=== PATIENT | female | born 1990 | race Caucasian/White ===

== ENCOUNTER 2016-10-11 18:14 | Emergency (ER) | payer OTHER ==
[2016-10-11 18:24] VITALS: BP 134/79; PULSE 123; TEMP 101; BMI 31.7
[2016-10-11] MEDS ORDERED: IBUPROFEN 400 MG TABLET (FP) PO ONE (18:53)
--- NOTE | 2016-10-11 19:34 | PDOC ---
History of Present Illness - General Chief Complaint: Sore Throat Stated Complaint: FEVER Time Seen by Provider: 10/11/16 18:51 History Source: Patient Exam Limitations: No Limitations - History of Present Illness Initial Comments: 10/11/16 19:26 25 yr female with c/o fever sore throat since yesterday and low back pain. no vomiting or diarrhea, no sick contacts. Timing/Duration: 24 hours Severity: mild Past History - Past Medical History Allergies/Adverse Reactions: Allergies Allergy/AdvReac Type Severity Reaction Status Date / Time No Known Allergies Allergy Verified 10/17/15 15:57 Home Medications: Ambulatory Orders Amoxicillin - [Amoxicillin 500mg Capsule -] 500 mg PO BID #20 capsule 10/11/16 Ibuprofen 800 mg PO TID PRN #21 tablet 10/11/16 Asthma: No Cancer: No Cardiac Disorders: No CVA: Yes (at 6 months old) Diabetes: No HTN: No Suicide Attempt (Hx): No Seizures: Yes (6 Months- 6 Y.O.A.) Thyroid Disease: No - Reproductive History (#): 3 Para: 1 Cervical CA: No Dysfunctional Uterine Bleeding: No Ectopic : No Endometrial CA: No Polycystic Ovaries: No Therapeutic (s) & number: Yes Tubal Ligation: No - Immunization History Td Vaccination: Yes TDAP Vaccination: Yes Immunization Up to Date: Yes - Psycho/Social/Smoking Cessation Hx Anxiety: No Suicidal Ideation: No Smoking Status: No Smoking History: Never smoked Years of Tobacco Use: 0 Have you smoked in the past 12 months: No Number of Cigarettes Smoked Daily: 1 Cigars Per Day: 0 Hx Alcohol Use: No Drug/Substance Use Hx: No Substance Use Type: None Hx Substance Use Treatment: No Review of Systems - Review of Systems Able to Perform ROS?: Yes Is the patient limited Tongan proficient: No Constitutional: Yes: Symptoms Reported, Fever HEENTM: Yes: Symptoms Reported Respiratory: No: Symptoms reported Cardiac (ROS): No: Symptoms Reported ABD/GI: No: Symptoms Reported *Physical Exam - Vital Signs Last Vital Signs Temp Pulse Resp BP Pulse Ox 101.0 F H 123 H 20 134/79 100 10/11/16 18:21 10/11/16 18:21 10/11/16 18:21 10/11/16 18:21 10/11/16 18:21 - Physical Exam General Appearance: Yes: Nourished, Appropriately Dressed HEENT: positive: EOMI, CORNELIO, TMs Normal, Tonsillar Exudate, Tonsillar Erythema, Other (uvula midline). negative: Muffled/Hoarse voice Neck: positive: Lymphadenopathy (R), Lymphadenopathy (L) Respiratory/Chest: positive: Lungs Clear, Normal Breath Sounds Cardiovascular: positive: Regular Rhythm, Regular Rate, Tachycardia (fever) Gastrointestinal/Abdominal: positive: Normal Bowel Sounds, Soft. negative: Tender Musculoskeletal: positive: Normal Inspection. negative: CVA Tenderness, CVA Tenderness (R), CVA Tenderness (L) Extremity: positive: Normal Capillary Refill, Normal Inspection, Normal Range of Motion Integumentary: positive: Normal Color, Dry, Warm Neurologic: positive: Fully Oriented, Alert, Normal Mood/Affect, Normal Response , Motor Strength 5/5 Medical Decision Making - Medical Decision Making 10/11/16 19:35 cc: sore throat fever no vomiting or diarrhea no abd pain, co low back pain no urinary symptoms no sick contacts will check rapid strep 10/11/16 19:36 pt is able to tolerate po water dc inst given to pt all questions asked and answered at discharge pt aware to return if worse 10/11/16 19:42 10/11/16 19:45 *DC/Admit/Observation/Transfer Diagnosis at time of Disposition: Strep pharyngitis - Discharge Dispostion Disposition: HOME Condition at time of disposition: Good - Prescriptions Prescriptions: Amoxicillin - [Amoxicillin 500mg Capsule -] 500 mg PO BID #20 capsule Ibuprofen 800 mg PO TID PRN #21 tablet PRN Reason: Moderate Pain - Referrals Referrals: France Eckert MD [Primary Care Provider] - - Patient Instructions Additional Instructions: gargle with warm salt water 4-5 times a day take motirn 800mg every 6hrs for fever as needed ice pops, jello, juice, water, drink pleanty of fluids take the Amoxicillin as directed for 10 days follow with ENT if any worsening symptoms
[2016-10-11] MEDS ORDERED: AMOXICILLIN 500 MG CAPSULE (FP) PO ONE (19:37)
[2016-10-11] MEDS ORDERED: ACETAMINOPHEN 500 MG TABLET (FP) PO ONE (19:41)
[2016-10-11] MEDS ORDERED: AMOXICILLIN 250 MG CAPSULE ONE (19:43)
[2016-10-11] MEDS ORDERED: ACETAMINOPHEN 500 MG TABLET (FP) ONE (19:43)
[2016-10-11 19:47] LABS: URINE APPEARANCE SLCLOUDY; URINE BILIRUBIN NEGATIVE (NEGATIVE); URINE BLOOD 2+ (NEGATIVE); URINE COLOR AMBER; URINE GLUCOSE (UA) NEGATIVE (NEGATIVE); URINE KETONE NEGATIVE (NEGATIVE); URINE LEUK ESTERASE NEGATIVE (NEGATIVE); URINE NITRITE NEGATIVE (NEGATIVE); URINE PROTEIN NEGATIVE (NEGATIVE); URINE UROBILINOGEN 4.0 E.U/dl mg/dL (0.2-1.0)
[2016-10-11 19:50] LABS: URINE HYALINE CAST 1 /lpf; URINE MUCUS RARE; URINE RBC 16 /hpf (0-3); URINE WBC 3 /hpf (3-5)
== END 2016-10-11 19:48 | disposition home or self-care (01) ==
LOC: JERFT 18:14
DX: J02.0 Streptococcal pharyngitis (principal); B95.4 Other streptococcus as the cause of diseases classified elsewhere; Z86.69 Personal history of other diseases of the nervous system and sense organs; Z86.73 Personal history of transient ischemic attack (TIA), and cerebral infarction without residual deficits
CPT/HCPCS: 81003; 81015; 84703; 87070; 87430; 99281-25

== ENCOUNTER 2018-06-04 11:00 | Emergency (ER) | payer OTHER ==
[2018-06-04 11:05] VITALS: BP 123/86; PULSE 86; TEMP 98.2; BMI 31.4
--- NOTE | 2018-06-04 13:30 | PDOC ---
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) COPD: No Diabetes: No HTN: No Seizures: Yes (6 Months- 6 Y.O.A.) Thyroid Disease: No - Surgical History Cholecystectomy: (gall stones) - Reproductive History (#): 3 Para: 1 Cervical CA: No Dysfunctional Uterine Bleeding: No Ectopic : No Endometrial CA: No Polycystic Ovaries: No Therapeutic (s) & number: Yes Tubal Ligation: No - Immunization History Td Vaccination: Yes TDAP Vaccination: Yes Immunization Up to Date: Yes - Suicide/Smoking/Psychosocial Hx Smoking Status: No Smoking History: Never smoked Years of Tobacco Use: 0 Have you smoked in the past 12 months: No Number of Cigarettes Smoked Daily: 1 Cigars Per Day: 0 Hx Alcohol Use: No Drug/Substance Use Hx: No Substance Use Type: None Hx Substance Use Treatment: No <Mack Scott - Last Filed: 06/04/18 16:13> <Cherelle Barnett - Last Filed: 06/04/18 18:46> - Past Medical History Allergies/Adverse Reactions: Allergies Allergy/AdvReac Type Severity Reaction Status Date / Time No Known Allergies Allergy Verified 06/04/18 11:04 Home Medications: Ambulatory Orders NK [No Known Home Medication] 06/04/18 Review of Systems - Review of Systems Constitutional: No: Chills, Fever ABD/GI: No: Blood Streaked Bowels, Constipated, Diarrhea, Nausea, Rectal Bleeding, Vomiting : Yes: Flank Pain. No: Dysuria, Discharge, Frequency, Hematuria <Mack Scott Last Filed: 06/04/18 16:13> *Physical Exam - Vital Signs Last Vital Signs Temp Pulse Resp BP Pulse Ox 98.2 F 86 18 123/86 99 06/04/18 11:01 06/04/18 11:01 06/04/18 11:01 06/04/18 11:01 06/04/18 11:01 - Physical Exam General Appearance: Yes: Appropriately Dressed. No: Apparent Distress HEENT: positive: Normal Voice Neck: positive: Supple Respiratory/Chest: negative: Respiratory Distress Gastrointestinal/Abdominal: positive: Normal Bowel Sounds, Tender (poorly localized ttp to R side of abd, neg murpehys, NT over mcburneys), Soft. negative: Distended, Guarding, Rebound Musculoskeletal: negative: CVA Tenderness Integumentary: positive: Dry, Warm Neurologic: positive: Fully Oriented, Alert, Normal Mood/Affect <Mack Scott - Last Filed: 06/04/18 16:13> - Vital Signs Last Vital Signs Temp Pulse Resp BP Pulse Ox 98.2 F 86 18 123/86 99 06/04/18 11:01 06/04/18 11:01 06/04/18 11:01 06/04/18 11:01 06/04/18 11:01 <Cherelle Barnett - Last Filed: 06/04/18 18:46> ED Treatment Course - LABORATORY CBC & Chemistry Diagram: 06/04/18 13:26 06/04/18 13:19 <Mack Scott - Last Filed: 06/04/18 16:13> - LABORATORY CBC & Chemistry Diagram: 06/04/18 13:26 06/04/18 13:19 - ADDITIONAL ORDERS Additional order review: Laboratory Results 06/04/18 06/04/18 06/04/18 15:10 13:21 13:19 Sodium 139 Potassium 4.1 Chloride 108 H Carbon Dioxide 26 Anion Gap 6 L BUN 12 Creatinine 0.6 Creat Clearance w eGFR 118.19 Random Glucose 79 Calcium 9.4 Total Bilirubin 0.4 AST 10 L ALT 16 Alkaline Phosphatase 84 Total Protein 7.7 Albumin 3.9 Serum , Qual Negative Urine Color Yellow Urine Appearance Clear Urine pH 6.5 Ur Specific [place] 1.025 Urine Protein Negative Urine Glucose (UA) Negative Urine Ketones Negative Urine Blood 3+ H Urine Nitrite Negative Urine Bilirubin Negative Urine Urobilinogen 0.2 Ur Leukocyte Esterase 1+ H Urine WBC (Auto) 2-5 Urine RBC (Auto) 20-50 Urine Casts (Auto) 0 U Epithel Cells (Auto) 2-5 Urine Bacteria (Auto) Few Urine HCG, Qual Negative 06/04/18 13:26 RBC 4.52 MCV 86.2 MCHC 34.6 RDW 13.0 D MPV 7.7 Neutrophils % 75.2 Lymphocytes % 19.2 Monocytes % 4.5 Eosinophils % 0.5 Basophils % 0.6 <Cherelle Barnett - Last Filed: 06/04/18 18:46> Medical Decision Making - Medical Decision Making 06/04/18 13:16 27 yo F, 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 No dysuria, hemauria, n/v/f/c. No change in BM or vaginal discharge. No h/o similar pain per pt See exam R flank pain Biliary colic vs uti/pyelo, less likely gastritis/pancretaitis or appy -pain control -labs -US 06/04/18 13:47 06/04/18 16:13 Labs unremarkable. RUQ/renal US read as fatty liver, otherwise no acute finding and no gallstones documented. Pt stable for discharge to f/u with her PMD as needed <Mack Scott - Last Filed: 06/04/18 16:13> *DC/Admit/Observation/Transfer <Mack Scott - Last Filed: 06/04/18 16:13> - Attestations Physician Attestion: I reviewed the case with the mid-level practitioner and agree with the mid- level practitioner's assessment, diagnosis and disposition. <Cherelle Barnett - Last Filed: 06/04/18 18:46> Diagnosis at time of Disposition: Flank pain - Discharge Dispostion Disposition: HOME Condition at time of disposition: Good - Referrals Referrals: France Eckert MD [Primary Care Provider] - - Patient Instructions Printed Discharge Instructions: Low Back Pain Additional Instructions: Your lab work and ultrasound were normal today. The cause of your side pain might be muscular. Take Motrin or Tylenol as needed and if symptoms persist, please follow-up with your PMD - Post Discharge Activity Forms/Work/School Notes: Back to Work Addendum entered and electronically signed by Mack Scott PA 06/04/18 16:14 : +bld on UA, pt currently on menses
[2018-06-04 13:48] LABS: BASO % 0.6 % (0-2.0); EOS % 0.5 % (0-4.5); HEMATOCRIT 38.9 % (32.4-45.2); HEMOGLOBIN 13.5 GM/dL (10.7-15.3); LYMPH % 19.2 % (8-40); MCH 29.8 pg (25.7-33.7); MCHC 34.6 g/dl (32.0-36.0); MEAN CELL VOLUME 86.2 fl (80-96); MEAN PLT VOLUME 7.7 fl (7.5-11.1); MONO % 4.5 % (3.8-10.2); NEUT % 75.2 % (42.8-82.8); PLATELET COUNT 341 K/MM3 (134-434); RBC 4.52 M/mm3 (3.60-5.2); WHITE BLOOD COUNT 7.3 K/mm3 (4.0-10.0)
[2018-06-04 14:03] LABS: ALBUMIN 3.9 g/dl (3.4-5.0); ALK PHOS 84 U/L (45-117); ANION GAP 6 MMOL/L (8-16); BILIRUBIN,TOTAL 0.4 mg/dL (0.2-1); BLOOD UREA NITROGEN 12 mg/dL (7-18); CALCIUM 9.4 mg/dL (8.5-10.1); CHLORIDE 108 mmol/L (98-107); CO2 26 mmol/L (21-32); CREATININE 0.6 mg/dL (0.55-1.3); GLUCOSE,RANDOM 79 mg/dL (74-106); POTASSIUM 4.1 mmol/L (3.5-5.1); SGOT/AST 10 U/L (15-37); SGPT/ALT 16 U/L (13-61); SODIUM 139 mmol/L (136-145); TOT PROT 7.7 g/dl (6.4-8.2)
[2018-06-04 15:44] LABS: HCG,QUALITATIVE URINE Negative; PH,URINE 6.5 (5.0-8.0); URINE APPEARANCE CLEAR; URINE BILIRUBIN NEGATIVE (NEGATIVE); URINE COLOR YELLOW; URINE GLUCOSE (UA) NEGATIVE (NEGATIVE); URINE KETONE NEGATIVE (NEGATIVE); URINE LEUK ESTERASE 1+ (NEGATIVE); URINE NITRITE NEGATIVE (NEGATIVE); URINE PROTEIN NEGATIVE (NEGATIVE); URINE UROBILINOGEN 0.2 mg/dL (0.2-1.0)
[2018-06-04 16:29] LABS: URINE RBC 20-50 /hpf (0-4)
[2018-06-04 16:30] LABS: URINE BACTERIA FEW /hpf (NEGATIVE); URINE CASTS 0 /lpf (0-8)
== END 2018-06-04 16:17 | disposition home or self-care (01) ==
LOC: JER 11:00
DX: R10.31 Right lower quadrant pain (principal); I69.854 Hemiplegia and hemiparesis following other cerebrovascular disease affecting left non-dominant side; Z86.69 Personal history of other diseases of the nervous system and sense organs
CPT/HCPCS: 36415; 76705-TC; 76775-TC; 80053; 81003; 84703; 85025; 99281-25

== ENCOUNTER 2019-08-20 18:17 | Emergency (ER) | payer OTHER ==
[2019-08-20 18:26] VITALS: TEMP 98.9
--- NOTE | 2019-08-20 18:27 | PDOC ---
Rapid Medical Evaluation Chief Complaint: Pain, Acute Time Seen by Provider: 08/20/19 18:22 Medical Evaluation: Allergies Allergy/AdvReac Type Severity Reaction Status Date / Time No Known Allergies Allergy Verified 07/10/19 13:50 08/20/19 18:24 I have performed a brief in-person evaluation of this patient. The patient presents with a chief complaint of: h/o gallstone present with RT flank pain which has been intermittent for 3 days now. report had covid ab test which was positive in August 15. Denies urinary frequency, dysuria or urgency. Denies any other sxs. pt did not take anything for the pain. LMP 08/01 Pertinent physical exam findings: afebrile. A&O x 3 in NAD. I have ordered the following:cbc,ua, ucx, hcg, cmp The patient will proceed to the ED for further evaluation. Discharge Disposition - Diagnosis Rt flank pain - Discharge Dispostion Condition at time of disposition: Stable - Referrals - Patient Instructions - Post Discharge Activity
[2019-08-20 19:17] LABS: BASO % 0.5 % (0-2.0); EOS % 0.4 % (0-4.5); HEMOGLOBIN 13.7 GM/dL (10.7-15.3); LYMPH % 17.4 % (8-40); MCH 29.8 pg (25.7-33.7); MCHC 33.4 g/dl (32.0-36.0); MEAN CELL VOLUME 89.1 fl (80-96); MEAN PLT VOLUME 8.2 fl (7.5-11.1); MONO % 6.9 % (3.8-10.2); NEUT % 74.8 % (42.8-82.8); PLATELET COUNT 308 K/MM3 (134-434); RDW 13.2 % (11.6-15.6); WHITE BLOOD COUNT 8.8 K/mm3 (4.0-10.0)
[2019-08-20 19:27] LABS: HCG,QUALITATIVE URINE Negative
[2019-08-20 19:28] LABS: EPI CELLS 10 /uL (0-25.1); HYALINE CASTS 0 /uL (0-3.1); URINE APPEARANCE CLOUDY; URINE BACTERIA 169 /uL (0-1359); URINE BILIRUBIN NEGATIVE (NEGATIVE); URINE COLOR YELLOW; URINE GLUCOSE (UA) NEGATIVE (NEGATIVE); URINE KETONE 1+ (NEGATIVE); URINE LEUK ESTERASE TRACE (NEGATIVE); URINE NITRITE NEGATIVE (NEGATIVE); URINE PROTEIN NEGATIVE (NEGATIVE); URINE RBC 53 /uL (0-23.9); URINE WBC 9 /uL (0-25.8)
--- NOTE | 2019-08-20 19:35 | PDOC ---
Documentation entered by Evelina Gupta SCRIBE, acting as scribe for Maria De Jesus Mathew MD. Maria De Jesus Mathew MD: This documentation has been prepared by the Candy hinojosa Nirvannie, SCRIBE, under my direction and personally reviewed by me in its entirety. I confirm that the documentation accurately reflects all work, treatment, procedures, and medical decision making performed by me. Attending Attestation - Resident Resident Name: JeanWen - ED Attending Attestation I have performed the following: I have examined & evaluated the patient, The case was reviewed & discussed with the resident, I agree w/resident's findings & plan, Exceptions are as noted - HPI HPI: 08/20/19 20:10 The patient is a 28 year old female with a significant past medical history of CVA (at 6mo residual left sided weakness and left hand contraction) and fatty liver disease who presents to the ED with 2 months of intermittent abdominal pain. Patient notes recent labs which were within normal limits and has an outpa tient endoscopy scheduled for tomorrow. Patient notes RLQ abdominal pain near the umbilicus, prompting her arrival to the ED. She denies any fevers or chills. - Physicial Exam PE: 08/20/19 19:43 wnwd 28 yo female with c/o RLQ pain head ncat neck supple lungs cta b/l cvs [id number] abd mild rlq tenderness to deep palpation. no rebound skin warm and dry neuro axox3, chronic left sided weakness with mild contracture of her hand 08/20/19 19:46 - Medical Decision Making 08/20/19 19:42 pt is being followed by gastroenterology and is scheduled for endoscopy tomorrow 08/21/19 00:16 labs reviewed negative test ct scan abd/pelvis: involuting rt ovarian cyst, no appendicitis, no sbo pt referred to [facility] home Discharge - Discharge Information Problems reviewed: Yes Clinical Impression/Diagnosis: Ovarian cyst, right, Right sided abdominal pain Condition: Improved Disposition: HOME - Follow up/Referral Referrals: Maral Gustafson MD [Staff Physician] - - Patient Discharge Instructions Patient Printed Discharge Instructions: DI for Ovarian Cyst Additional Instructions: You came into the ER with abdominal pain. We did CT imaging of your abdomen and pelvis which found a 2cm Right ovarian cyst. We recommend that you follow up with your PCP regarding the R ovarian cyst. You may also follow up directly with our OB referral in the next week. As discussed, please make sure to go to your endoscopy tomorrow. The CT imaging does not replace the need to get an endoscopy. Please return to ED if you have new or worsening symptoms. Thank you! - Post Discharge Activity
[2019-08-20] MEDS ORDERED: SODIUM CHLORIDE 1,000 ML IV STA (19:39)
--- NOTE | 2019-08-20 19:47 | PDOC ---
History of Present Illness - General Chief Complaint: Pain, Acute Stated Complaint: ABDOMINAL PAIN Time Seen by Provider: 08/20/19 18:22 - History of Present Illness Initial Comments: Pt is a 28yo F with h/o fatty liver presents with right sided abdominal pain. She states that this is the same pain from her previous visit in June. Pain is intermittent, with 3 episodes daily, each lasting for 10-15 minutes. Pain is 9/10 and sharp in quality. Located in RUQ, R sided periumbilical, and R flank. States that pain improves when drinking water and worsens occasionally with eating. Denies taking any medications for the pain. Associated with chills, fatigue, SOB w/exertion, with 1 episode of diarrhea. Denies fever, n/v, chest pain, melena/hematochezia, dysuria. LMP was 2 weeks ago. Denies history of STI. PCP: France Lakhani PMH: denies PSHx: denies Meds: none reported All: NKDA Social Hx: denies smoking, illicit substance use, denies alcohol use Past History - Medical History Allergies/Adverse Reactions: Allergies Allergy/AdvReac Type Severity Reaction Status Date / Time No Known Allergies Allergy Verified 08/20/19 18:26 Home Medications: Ambulatory Orders NK [No Known Home Medication] 06/04/18 Asthma: No Cancer: No Cardiac Disorders: No CVA: Yes (at 6 months old) COPD: No Diabetes: No HTN: No Seizures: Yes (6 Months- 6 Y.O.A.) Thyroid Disease: No - Surgical History Cholecystectomy: Yes (gall stones) - Reproductive History (#): 3 Para: 1 Cervical CA: No Dysfunctional Uterine Bleeding: No Ectopic : No Endometrial CA: No Polycystic Ovaries: No Therapeutic (s) & number: Yes Tubal Ligation: No - Immunization History Td Vaccination: Yes TDAP Vaccination: Yes Immunization Up to Date: Yes - Psycho-Social/Smoking History Smoking Status: No Smoking History: Never smoked Years of Tobacco Use: 0 Have you smoked in the past 12 months: No Number of Cigarettes Smoked Daily: 1 Cigars Per Day: 0 - Substance Abuse Hx (Audit-C & DAST Scrn) How often the patient has a drink containing alcohol: Never Score: In Men: 4 or > Positive; In Women: 3 or > Positive: 0 Screen Result (Pos requires Nsg. Audit-10AR): Negative Review of Systems - Review of Systems Comments:: ROS Constitutional: Reports chills, fatigue, Denies fevers Respiratory: Reports SOB w/exertion. Denies: Cough, Wheezing Cardiac: Denies Chest Pain, Palpitations, Edema GI: Reports abdominal pain, 1 episode of diarrhea, Denies: n/v, constipation : Denies dysuria, change in frequency, urgency Neurological: Denies headache, numbness, weakness *Physical Exam - Vital Signs Last Vital Signs Temp Pulse Resp BP Pulse Ox 98.9 F 89 18 141/88 100 08/20/19 18:23 08/20/19 18:23 08/20/19 18:23 08/20/19 18:23 08/20/19 18:23 - Physical Exam General: in no acute distress, well developed, well nourished Head: normocephalic Lung: equal breath sounds b/l, CTA b/l, no crackles, wheezes Heart: RRR, normal S1, S2, no murmurs, rubs, gallops Abdomen: soft, tender in RUQ, positive Campos's, normoactive bowel sounds, negative Psoas and obturator signs, no CVA tenderness Extremities: no edema, DP/PT pulses 2+ and symmetric Skin: warm, dry ED Treatment Course - LABORATORY CBC & Chemistry Diagram: 08/20/19 18:44 08/20/19 18:44 - ADDITIONAL ORDERS Additional order review: Laboratory Results 08/20/19 18:45 Urine Color Yellow Urine Appearance Cloudy Urine pH 7.0 Ur Specific [place] 1.016 Urine Protein Negative Urine Glucose (UA) Negative Urine Ketones 1+ H Urine Blood 1+ H Urine Nitrite Negative Urine Bilirubin Negative Urine Urobilinogen 1.0 Ur Leukocyte Esterase Trace Urine WBC (Auto) 9 Urine RBC (Auto) 53 Urine Casts (Auto) 0 U Epithel Cells (Auto) 10 Urine Bacteria (Auto) 169 Urine HCG, Qual Negative 08/20/19 18:44 RBC 4.60 MCV 89.1 MCHC 33.4 RDW 13.2 MPV 8.2 D Neutrophils % 74.8 Lymphocytes % 17.4 D Monocytes % 6.9 Eosinophils % 0.4 D Basophils % 0.5 Medical Decision Making - Medical Decision Making Ms. Burrell is a 28yo F with Hx of fatty liver presents with Right sided abdominal pain. Vital Signs Temp Pulse Resp BP Pulse Ox 98.9 F 89 18 141/88 100 08/20/19 18:23 08/20/19 18:23 08/20/19 18:23 08/20/19 18:23 08/20/19 18:23 DDx: biliary colic, gallstones, appendicitis, urolithiasis Plan: labs, CT abdomen/pelvis, pain control MDM: - Patient in mild distress, given PO Tylenol with improvement in pain - Pt is scheduled for outpatient endoscopy tomorrow Re-assessment: - labs WNL - Patient continues to endorse periumbilical pain, but no guarding, rigidity - CT unremarkable liver, no gallstones, no acute intra-abdominal or intrapelvic process. 2cm Right ovarian cyst - patient is aware of CT results, she has endoscopy tomorrow, pt requests to be discharged home Disposition: Discharge to home Discharge - Discharge Information Problems reviewed: Yes Clinical Impression/Diagnosis: Ovarian cyst, right, Right sided abdominal pain Clinical Impression/Diagnosis: (Ruled Out): Rt flank pain Condition: Improved Disposition: HOME - Admission No - Follow up/Referral Referrals: Maral Gustafson MD [Staff Physician] - - Patient Discharge Instructions Patient Printed Discharge Instructions: DI for Ovarian Cyst Additional Instructions: You came into the ER with abdominal pain. We did CT imaging of your abdomen and pelvis which found a 2cm Right ovarian cyst. We recommend that you follow up with your PCP regarding the R ovarian cyst. You may also follow up directly with our OB referral in the next week. As discussed, please make sure to go to your endoscopy tomorrow. The CT imaging does not replace the need to get an endoscopy. Please return to ED if you have new or worsening symptoms. Thank you! - Post Discharge Activity
[2019-08-20 19:51] LABS: ALBUMIN 4.4 g/dl (3.4-5.0); BILIRUBIN,TOTAL 0.4 mg/dL (0.2-1); CALCIUM 9.5 mg/dL (8.5-10.1); CREATININE 0.9 mg/dL (0.55-1.3); POTASSIUM 3.4 mmol/L (3.5-5.1); TOT PROT 7.8 g/dl (6.4-8.2)
[2019-08-20] MEDS ORDERED: ACETAMINOPHEN 325 MG TABLET (FP) PO ONE (20:10)
[2019-08-20] MEDS ORDERED: ACETAMINOPHEN 325 MG TABLET (FP) ONE (20:19)
[2019-08-21 00:26] VITALS: BP 120/85; PULSE 84
== END 2019-08-21 00:20 | disposition home or self-care (01) ==
LOC: JER 18:17
PROC: 3E0337Z Introduction of Electrolytic and Water Balance Substance into Peripheral Vein, Percutaneous Approach (ICD-10-PCS; principal; 2019-08-20)
DX: N83.201 Unspecified ovarian cyst, right side (principal)
CPT/HCPCS: 36415; 74177-TC; 80053; 81003; 84703; 85025; 87086; 99284-25; Q9967

== ENCOUNTER 2021-09-29 20:33 | Emergency (ER) | payer OTHER ==
[2021-09-29 21:08] VITALS: BP 117/80; PULSE 88; RESP 17; TEMP 97.8; BMI 28.3
[2021-09-29] MEDS ORDERED: ACETAMINOPHEN 1000 MG/100 ML BAG IVPB ONE (22:30)
[2021-09-29] MEDS ORDERED: SODIUM CHLORIDE 1,000 ML IV STA (22:30)
[2021-09-29 22:54] LABS: BASO % 0.4 % (0-2.0); EOS % 0.7 % (0-4.5); HEMATOCRIT 36.4 % (32.4-45.2); HEMOGLOBIN 12.8 GM/dL (10.7-15.3); LYMPH % 20.7 % (8-40); MCH 30.1 pg (25.7-33.7); MEAN CELL VOLUME 85.9 fl (80-96); MEAN PLT VOLUME 6.8 fl (7.5-11.1); MONO % 6.8 % (3.8-10.2); NEUT % 71.4 % (42.8-82.8); PLATELET COUNT 293 10^3/uL (134-434); RBC 4.24 M/mm3 (3.60-5.2); RDW 12.5 % (11.6-15.6); WHITE BLOOD COUNT 8.7 K/mm3 (4.0-10.0)
[2021-09-29] MEDS ORDERED: ACETAMINOPHEN INJECTION 100 ML IVPB ONE (22:59)
[2021-09-29 23:19] LABS: URINE APPEARANCE TURBID; URINE BILIRUBIN NEGATIVE (NEGATIVE); URINE COLOR YELLOW; URINE GLUCOSE (UA) NEGATIVE (NEGATIVE); URINE KETONE NEGATIVE (NEGATIVE); URINE LEUK ESTERASE NEGATIVE (NEGATIVE); URINE NITRITE NEGATIVE (NEGATIVE); URINE PROTEIN NEGATIVE (NEGATIVE)
[2021-09-29 23:19] LABS: CALCIUM 9.1 mg/dL (8.5-10.1)
[2021-09-29 23:23] LABS: CREATININE 0.8 mg/dL (0.55-1.3)
[2021-09-29 23:24] LABS: BILIRUBIN,TOTAL 0.3 mg/dL (0.2-1); TOT PROT 7.6 g/dl (6.4-8.2)
[2021-09-29 23:29] LABS: HCG,QUALITATIVE URINE NEGATIVE
== END 2021-09-30 00:39 | disposition home or self-care (01) ==
LOC: JER 20:33
PROC: 3E033NZ Introduction of Analgesics, Hypnotics, Sedatives into Peripheral Vein, Percutaneous Approach (ICD-10-PCS; principal; 2021-09-29)
PROC: 3E0337Z Introduction of Electrolytic and Water Balance Substance into Peripheral Vein, Percutaneous Approach (ICD-10-PCS; 2021-09-29)
DX: R10.9 Unspecified abdominal pain (principal)
CPT/HCPCS: 36415; 76705-TC; 80053; 81003; 83690; 84703; 85025; 87086; 99284-25

== ENCOUNTER 2022-03-11 20:07 | Emergency (ER) | payer OTHER ==
[2022-03-11 20:13] VITALS: BP 137/77; PULSE 110; RESP 17; TEMP 98.8; BMI 32.9
[2022-03-11 22:00] LABS: HCG,QUALITATIVE URINE Positive
[2022-03-11 22:04] LABS: EPI CELLS 25 /uL (0-25.1); HYALINE CASTS 0 /uL (0-3.1); PH,URINE 6.5 (5.0-8.0); URINE APPEARANCE CLOUDY; URINE BACTERIA 3673 /uL (0-1359); URINE BILIRUBIN NEGATIVE (NEGATIVE); URINE COLOR YELLOW; URINE GLUCOSE (UA) NEGATIVE (NEGATIVE); URINE KETONE NEGATIVE (NEGATIVE); URINE LEUK ESTERASE 3+ (NEGATIVE); URINE NITRITE NEGATIVE (NEGATIVE); URINE PROTEIN NEGATIVE (NEGATIVE); URINE RBC 69 /uL (0-23.9); URINE WBC 302 /uL (0-25.8)
[2022-03-11] MEDS ORDERED: ACETAMINOPHEN 500 MG TABLET (FP) PO ONE (22:45)
[2022-03-11] MEDS ORDERED: CEPHALEXIN MONOHYDRATE 500 MG CAPSULE (UD) PO ONE (22:45)
[2022-03-11] MEDS ORDERED: CEPHALEXIN MONOHYDRATE 500 MG CAPSULE (UD) ONE (22:56)
== END 2022-03-11 23:06 | disposition home or self-care (01) ==
LOC: JER 20:07
DX: N30.00 Acute cystitis without hematuria (principal)
CPT/HCPCS: 81003; 84703; 87086; 99283-25

== ENCOUNTER 2022-06-13 20:21 | Emergency (ER) | payer OTHER ==
[2022-06-13 20:44] VITALS: BP 125/71; PULSE 110; RESP 20; TEMP 98; BMI 32.5
[2022-06-13] MEDS ORDERED: ACETAMINOPHEN 325 MG TABLET (FP) PO ONE (21:08)
[2022-06-13] MEDS ORDERED: ACETAMINOPHEN 325 MG TABLET (FP) ONE (21:09)
== END 2022-06-13 23:32 | disposition home or self-care (01) ==
LOC: JER 20:21
DX: O26.892 Other specified pregnancy related conditions, second trimester (principal); M79.604 Pain in right leg; W18.30XA Fall on same level, unspecified, initial encounter; Z3A.18 18 weeks gestation of pregnancy
CPT/HCPCS: 76815-TC; 86850; 86900; 86901; 99284-25

== ENCOUNTER 2022-11-03 09:00 | Inpatient (IN) | payer OTHER ==
[2022-11-03] MEDS ORDERED: ELECTROLYTE-148 SOLN 1,000 ML IV SCH (10:00)
[2022-11-03] MEDS ORDERED: OXYTOCIN 30 UNITS in 0.9% NS 30 UNIT/500 ML INFUS.BAG IVPB SCH (10:00)
[2022-11-03 10:42] LABS: BASO % 0.3 % (0-2.0); EOS % 0.3 % (0-4.5); HEMATOCRIT 35.6 % (32.4-45.2); HEMOGLOBIN 12.4 GM/dL (10.7-15.3); LYMPH % 9.6 % (8-40); MCH 30.2 pg (25.7-33.7); MCHC 34.7 g/dl (32.0-36.0); MEAN PLT VOLUME 6.9 fl (7.5-11.1); MONO % 6.2 % (3.8-10.2); NEUT % 83.6 % (42.8-82.8); PLATELET COUNT 265 10^3/uL (134-434); RDW 13.8 % (11.6-15.6); WHITE BLOOD COUNT 8.8 K/mm3 (4.0-10.0)
[2022-11-03 10:50] LABS: INR 1.03 (0.83-1.09); PROTHROMBIN TIME (PATIENT) 11.9 SEC (9.7-13.0)
[2022-11-03 10:52] LABS: ACTIVATED PTT 29.2 SECONDS (25.2-36.5)
[2022-11-03] MEDS ORDERED: OXYTOCIN 30 UNITS in 0.9% NS 30 UNIT/500 ML INFUS.BAG IVPB ONE (11:03)
[2022-11-03 11:20] LABS: POTASSIUM 3.8 mmol/L (3.5-5.1)
[2022-11-03 11:21] LABS: CALCIUM 9.3 mg/dL (8.5-10.1)
[2022-11-03 11:22] LABS: BLOOD UREA NITROGEN 5.8 mg/dL (7-18)
[2022-11-03 11:25] LABS: CREATININE 0.6 mg/dL (0.55-1.3)
[2022-11-03] MEDS ORDERED: BUTORPHANOL TARTRATE 1 MG/ML VIAL IVPUSH ONE (11:27)
[2022-11-03] MEDS ORDERED: PROMETHAZINE HCL 25 MG/1 ML VIAL IVPB ONE (11:27)
[2022-11-03 11:41] VITALS: BMI 35.6
[2022-11-03] MEDS ORDERED: LIDOCAINE HCL 1% PRESERVATIVE FREE - 30ML VIAL ONE (12:10)
[2022-11-03] MEDS ORDERED: OXYTOCIN 20 UNITS in 0.9% NS 20 UNIT/1,000 ML INFUS.BAG IV ONE (12:10)
[2022-11-03] MEDS ORDERED: BUTORPHANOL TARTRATE 1 MG/ML VIAL ONE (12:11)
[2022-11-03] MEDS ORDERED: PROMETHAZINE HCL 25 MG/1 ML VIAL ONE (12:11)
[2022-11-03] MEDS ORDERED: METHYLERGONOVINE MALEATE 0.2 MG/1 ML AMP IM PRN (12:43)
[2022-11-03] MEDS ORDERED: oxyCODONE HCL 5 MG TABLET PO PRN (12:43)
[2022-11-03] MEDS ORDERED: BENZOCAINE 28 GM HEMORRHOIDAL OINTMENT TP PRN (12:43)
[2022-11-03] MEDS ORDERED: BISACODYL 10 MG SUPP.RECT RC PRN (12:43)
[2022-11-03] MEDS ORDERED: BENZOCAINE 20% 57 GM BOTTLE TP PRN (12:43)
[2022-11-03] MEDS ORDERED: WITCH HAZEL 50% (TUCKS) 40 PAD/JAR PAD TP PRN (12:43)
[2022-11-03] MEDS ORDERED: OXYTOCIN 20 UNITS in 0.9% NS 20 UNIT/1,000 ML INFUS.BAG IV SCH (12:45)
[2022-11-03] MEDS: IBUPROFEN 600 MG TABLET (FP) PO PRN ×2 (18:33→22:34)
[2022-11-03] MEDS: ACETAMINOPHEN 325 MG TABLET (FP) PO PRN (21:52)
[2022-11-04] MEDS: ACETAMINOPHEN 325 MG TABLET (FP) PO PRN (02:01)
[2022-11-04 08:43] LABS: BASO % 0.4 % (0-2.0); EOS % 0.4 % (0-4.5); HEMATOCRIT 34.8 % (32.4-45.2); HEMOGLOBIN 11.9 GM/dL (10.7-15.3); LYMPH % 9.6 % (8-40); MCH 30.2 pg (25.7-33.7); MCHC 34.2 g/dl (32.0-36.0); MEAN CELL VOLUME 88.2 fl (80-96); MEAN PLT VOLUME 7.1 fl (7.5-11.1); MONO % 4.5 % (3.8-10.2); NEUT % 85.1 % (42.8-82.8); PLATELET COUNT 274 10^3/uL (134-434); RBC 3.95 M/mm3 (3.60-5.2); RDW 14.1 % (11.6-15.6); WHITE BLOOD COUNT 10.6 K/mm3 (4.0-10.0)
[2022-11-04] MEDS: IBUPROFEN 600 MG TABLET (FP) PO PRN (09:51)
[2022-11-04] MEDS ORDERED: SENNOSIDES/DOCUSATE COMBO (SENNA PLUS) TABLET (UD) PO PRN (22:00)
[2022-11-05] MEDS: IBUPROFEN 600 MG TABLET (FP) PO PRN ×2 (05:50→09:23)
[2022-11-05 11:13] VITALS: BP 125/78; PULSE 78; RESP 14; TEMP 97.8
== END 2022-11-05 12:15 | disposition home or self-care (01) | DRG 560 ==
LOC: JDEL 09:00 → JLDR 09:20 → J3W 14:35
PROVIDERS: ADMIT Obstetrics & Gynecology; ATTEND Obstetrics & Gynecology
PROC: 10E0XZZ Delivery of Products of Conception, External Approach (ICD-10-PCS; principal; 2022-11-03)
DX: O80 Encounter for full-term uncomplicated delivery (principal); Z37.0 Single live birth; Z3A.38 38 weeks gestation of pregnancy
CPT/HCPCS: 36415; 80048; 85025; 85610; 85730; 86780; 86850; 86900; 86901

== ENCOUNTER 2023-09-21 20:32 | Emergency (ER) | payer OTHER ==
[2023-09-21 20:49] VITALS: BMI 30.4
[2023-09-21 21:19] LABS: EPI CELLS 27 /uL (0-25.1); HCG,QUALITATIVE URINE Negative; HYALINE CASTS 0 /uL (0-3.1); URINE APPEARANCE CLEAR; URINE BACTERIA 820 /uL (0-1359); URINE BILIRUBIN NEGATIVE (NEGATIVE); URINE COLOR DK YELLOW; URINE GLUCOSE (UA) NEGATIVE (NEGATIVE); URINE KETONE NEGATIVE (NEGATIVE); URINE LEUK ESTERASE 1+ (NEGATIVE); URINE NITRITE NEGATIVE (NEGATIVE); URINE PROTEIN NEGATIVE (NEGATIVE); URINE RBC 49 /uL (0-23.9); URINE WBC 86 /uL (0-25.8)
[2023-09-21] MEDS ORDERED: ACETAMINOPHEN 325 MG TABLET (FP) ONE (21:36)
[2023-09-21] MEDS: ACETAMINOPHEN 500 MG TABLET (FP) PO ONE (21:41)
[2023-09-21] MEDS: SODIUM CHLORIDE 0.9% 500 ML INFUS.BAG IV ONE (21:41)
[2023-09-21 21:52] LABS: BASO % 0.6 % (0-2.0); EOS % 0.5 % (0-4.5); HEMATOCRIT 37.6 % (32.4-45.2); LYMPH % 19.8 % (8-40); MCH 29.1 pg (25.7-33.7); MCHC 34.7 g/dl (32.0-36.0); MEAN CELL VOLUME 84.1 fl (80-96); MEAN PLT VOLUME 7.3 fl (7.5-11.1); MONO % 7.4 % (3.8-10.2); NEUT % 71.7 % (42.8-82.8); PLATELET COUNT 365 10^3/uL (134-434); RBC 4.47 M/mm3 (3.60-5.2); RDW 13.1 % (11.6-15.6); WHITE BLOOD COUNT 7.4 K/mm3 (4.0-10.0)
[2023-09-21 22:09] LABS: POTASSIUM 3.6 mmol/L (3.5-5.1)
[2023-09-21 22:11] LABS: CALCIUM 9.4 mg/dL (8.5-10.1)
[2023-09-21 22:12] LABS: ALBUMIN 4.2 g/dl (3.4-5.0)
[2023-09-21] MEDS ORDERED: CEFTRIAXONE 1 GM/50 ML BAG ONE (22:13)
[2023-09-21 22:14] LABS: BLOOD UREA NITROGEN 11.6 mg/dL (7-18)
[2023-09-21 22:17] LABS: BILIRUBIN,TOTAL 0.4 mg/dL (0.2-1)
[2023-09-21] MEDS: CEFTRIAXONE 1,000 MG in DEXTROSE 5%-WATER - 50 ML IVPB ONE (22:17)
[2023-09-21 22:18] LABS: CREATININE 0.9 mg/dL (0.55-1.3)
[2023-09-21 22:19] LABS: TOT PROT 8.1 g/dl (6.4-8.2)
[2023-09-21 23:39] VITALS: BP 126/87; PULSE 96; RESP 18; TEMP 98.4
== END 2023-09-21 23:41 | disposition home or self-care (01) ==
LOC: JER 20:32
DX: R10.31 Right lower quadrant pain (principal); N39.0 Urinary tract infection, site not specified
CPT/HCPCS: 36415; 74176-TC; 80053; 81003; 84703; 85025; 87086; 87186; 99284-25